=== PATIENT | male | born 1970 | race African-American/Black ===

== ENCOUNTER 2020-11-07 12:53 | Inpatient (IN) | payer MEDICAID, MEDICARE ==
[~2020-11-07] VITALS: Ht 165.1 cm; Wt 92.3 kg
[2020-11-07] MEDS ORDERED: FLUO-191 PO (13:02)
[2020-11-07] MEDS ORDERED: QUET200T PO (13:02)
[2020-11-07] MEDS ORDERED: DIVA-112 PO (13:02)
[2020-11-07 15:00] LABS: BASOPHILS % (AUTO) 0.7 % (0.0-2.0); EOSINOPHILS % (AUTO) 2.3 % (1.0-6.0); HEMATOCRIT 43.8 % (41-53); HEMOGLOBIN 14.3 g/dL (13.5-17.5); LYMPHOCYTES # (AUTO) 3.2 K/uL (1.0-4.8); MEAN CORPUSCULAR HEMOGLOBIN 27.2 pg (26.0-34.0); MEAN CORPUSCULAR HGB CONC 32.6 G/dL (31.0-37.0); MEAN CORPUSCULAR VOLUME 84 fL (80-100); MONOCYTES # (AUTO) 0.7 K/uL (0.1-1.0); MONOCYTES % (AUTO) 8.2 % (2.0-9.0); NEUTROPHILS # (AUTO) 4.4 K/uL (1.8-7.7); NEUTROPHILS % (AUTO) 51.8 % (40.0-70.0); PLATELET COUNT (AUTO) 322 K/uL (150-450); RED BLOOD CELL COUNT(AUTO) 5.25 MIL/uL (4.50-5.90); RED CELL DISTRIBUTION WIDTH 15.1 % (11.5-14.5)
[2020-11-07 15:12] LABS: ANION GAP 10 mmol/L (8-16); CALCIUM, TOTAL 9.1 mg/dL (8.8-10.5); CARBON DIOXIDE 28 mmol/L (22-29); CHLORIDE 106 mmol/L (98-107); CREATININE 1.12 mg/dL (0.60-1.30); GLOMERULAR FILTR. RATE CALC > 60 mL/min (>60); GLUCOSE,RANDOM 136 mg/dL (70-110); POTASSIUM 3.8 mmol/L (3.5-5.1); SODIUM SERUM 144 mmol/L (136-145); UREA NITROGEN, BLOOD 13 mg/dL (7-18)
[2020-11-07 15:19] LABS: ALANINE AMINOTRANSFERASE 39 U/L (12-78); ALBUMIN 3.9 g/dL (3.4-5.0); ALKALINE PHOSPHATASE 83 U/L (46-116); ASPARTATE AMINOTRANSFERASE 21 U/L (15-37); BILIRUBIN,TOTAL 0.3 mg/dL (0.1-1.0); TOTAL PROTEIN, SERUM 7.9 g/dL (6.4-8.2); VALPROIC ACID 4 mcg/mL (50-100)
[2020-11-07 17:43] LABS: AMPHET/METH SCREEN,URINE NEGATIVE (NEGATIVE); BARBITURATE SCREEN, URINE NEGATIVE (NEGATIVE); BENZODIAZEPINES SCREEN,URINE NEGATIVE (NEGATIVE); CANNABINOID SCREEN,URINE NEGATIVE (NEGATIVE); COCAINE SCREEN,URINE POSITIVE (NEGATIVE); METHADONE SCREEN, URINE NEGATIVE (NEGATIVE); OPIATE SCREEN,URINE NEGATIVE (NEGATIVE)
[2020-11-07 17:45] LABS: PHENCYCLIDINE SCREEN,URINE NEGATIVE (NEGATIVE)
[2020-11-07 19:43] LABS: COVID AG,FIA SOURCE NASOPHARYNGEAL
[2020-11-07] MEDS ORDERED: OLANZapine 5 MG RAPDIS TABLET PO PRN (19:45)
[2020-11-07] MEDS ORDERED: ZOLPIDEM TARTRATE 10 MG TABLET PO PRN (19:45)
[2020-11-07] MEDS ORDERED: LORazepam 2 MG TABLET PO PRN (19:45)
[2020-11-07] MEDS ORDERED: ACETAMINOPHEN 325 MG TABLET PO PRN (20:15)
[2020-11-07] MEDS ORDERED: PROMETHAZINE HCL 25 MG TABLET PO PRN (20:15)
[2020-11-07] MEDS ORDERED: MAG HYDROX/AL HYDROX/SIMETH ES 30 ML SUSPENSION UDCUP PO PRN (20:15)
[2020-11-07] MEDS ORDERED: LOPERAMIDE HCL 2 MG CAPSULE PO PRN (20:15)
[2020-11-07] MEDS ORDERED: HydrOXYzine PAMOATE 50 MG CAPSULE PO PRN (20:15)
[2020-11-07] MEDS ORDERED: TUBERCULIN, PURIFIED PROTEIN DERIVATIVE 5 TU/0.1 ML SYRINGE ID ONE (20:15)
[2020-11-07] MEDS ORDERED: MAGNESIUM HYDROXIDE SUSPENSION 30 ML UDCUP PO PRN (20:15)
[2020-11-07] MEDS ORDERED: GuaiFENesin/D-METHORPHAN [SUGAR-FREE] 200-20MG/10 ML SYRUP UDCUP PO PRN (20:15)
[2020-11-07 21:00] VITALS: BP 100/65
[2020-11-07] MEDS ORDERED: OLANZapine 5 MG RAPDIS TABLET PO SCH (21:00)
[2020-11-08] VITALS (7 sets, daily range): BP systolic 101–134; BP diastolic 66–78
[2020-11-08 07:00] LABS: HEMOGLOBIN A1C 6.7 % (3.8-5.6)
[2020-11-08 07:39] LABS: CHOL/HDL RATIO 3.1 (4.2-7.3); FREE T4 (FREE THYROXINE) 0.93 ng/dL (0.76-1.46); THYROID STIMULATING HORMONE 1.13 uIU/mL (0.36-3.74)
[2020-11-08] MEDS: THIAMINE 100 MG TABLET PO SCH ×3 (08:41→16:34)
[2020-11-08] MEDS: OMEGA-3/DHA/EPA/FISH OIL 1,000 MG CAPSULE PO SCH (08:42)
[2020-11-08] MEDS: FOLIC ACID 1 MG TABLET PO SCH (08:42)
[2020-11-08] MEDS: FLUoxetine HCL 20 MG CAPSULE PO SCH (08:42)
[2020-11-08] MEDS: NALTREXONE HCL 50 MG TABLET PO SCH (08:42)
[2020-11-08] MEDS: MULTIVITAMINS WITH MINERALS, THERAPEUTIC TABLET PO SCH (08:42)
[2020-11-08] MEDS: NICOTINE 14 MG/24 HOUR PATCH TD SCH (09:00)
[2020-11-08] MEDS ORDERED: LORazepam 2 MG TABLET PO PRN (19:00)
[2020-11-08] MEDS ORDERED: CYANOCOBALAMIN 1,000 MCG/ML VIAL IM ONE (19:00)
[2020-11-08] MEDS ORDERED: GLUCAGON,HUMAN RECOMBINANT 1 MG VIAL IM PRN (19:00)
[2020-11-08] MEDS ORDERED: QUEtiapine FUMARATE 100 MG TABLET PO PRN (19:00)
[2020-11-08] MEDS ORDERED: INSULIN LISPRO 100 UNITS/ML SQ PRN (19:00)
[2020-11-08] MEDS ORDERED: DEXTROSE 50%-WATER 25 GM/50 ML SYRINGE IVP PRN (19:15)
[2020-11-08] MEDS: MELATONIN 5 MG TABLET PO SCH ×2 (20:21→22:12)
[2020-11-08] MEDS: DIVALPROEX SODIUM 500 MG ER TABLET PO SCH ×2 (20:25→22:12)
[2020-11-08] MEDS ORDERED: QUEtiapine FUMARATE 200 MG TABLET PO SCH (21:00)
[2020-11-08] MEDS: INSULIN LISPRO 100 UNITS/ML SQ PRN (22:31)
[2020-11-08 22:37] LABS: GLUCOMETER DEV NAME(LOC) 3E.I 2; GLUCOSE,POINT OF CARE 168 MG/DL (70-110)
[2020-11-09 03:00] VITALS: BP 103/59
[2020-11-09] MEDS: INSULIN LISPRO 100 UNITS/ML SQ PRN (06:58)
[2020-11-09] MEDS ORDERED: LORazepam 2 MG TABLET PO PRN (07:00)
[2020-11-09 07:02] VITALS: BP 107/58
[2020-11-09 08:17] VITALS: BP 103/63
[2020-11-09] MEDS: FOLIC ACID 1 MG TABLET PO SCH (08:41)
[2020-11-09] MEDS: OMEGA-3/DHA/EPA/FISH OIL 1,000 MG CAPSULE PO SCH (08:41)
[2020-11-09] MEDS: NALTREXONE HCL 50 MG TABLET PO SCH (08:41)
[2020-11-09] MEDS: MULTIVITAMINS WITH MINERALS, THERAPEUTIC TABLET PO SCH (08:41)
[2020-11-09] MEDS: FLUoxetine HCL 20 MG CAPSULE PO SCH (08:41)
[2020-11-09] MEDS: THIAMINE 100 MG TABLET PO SCH ×2 (08:41→17:02)
[2020-11-09] MEDS: LORazepam 2 MG TABLET PO SCH ×4 (08:41→20:28)
[2020-11-09] MEDS: NICOTINE 14 MG/24 HOUR PATCH TD SCH (08:42)
[2020-11-09] MEDS ORDERED: THIAMINE 100 MG TABLET PO SCH (09:00)
[2020-11-09] MEDS ORDERED: FOLIC ACID 1 MG TABLET PO SCH (09:00)
[2020-11-09 11:32] LABS: GLUCOMETER DEV NAME(LOC) 3E.I 2; GLUCOSE,POINT OF CARE 95 MG/DL (70-110)
[2020-11-09 16:00] VITALS: BP 127/70
[2020-11-09 17:48] LABS: GLUCOMETER DEV NAME(LOC) 3E.I 2; GLUCOSE,POINT OF CARE 103 MG/DL (70-110)
[2020-11-09 19:25] VITALS: BP 127/70
[2020-11-09] MEDS: DIVALPROEX SODIUM 500 MG ER TABLET PO SCH (20:28)
[2020-11-09] MEDS: MELATONIN 5 MG TABLET PO SCH (20:28)
[2020-11-09 20:34] LABS: GLUCOMETER DEV NAME(LOC) 3E.I 2; GLUCOSE,POINT OF CARE 169 MG/DL (70-110)
[2020-11-09] MEDS ORDERED: QUEtiapine FUMARATE 300 MG TABLET PO SCH (21:00)
[2020-11-10 00:30] VITALS: BP 116/75
[2020-11-10 05:37] LABS: GLUCOMETER DEV NAME(LOC) 3E.I 2; GLUCOSE,POINT OF CARE 176 MG/DL (70-110)
[2020-11-10] MEDS: INSULIN LISPRO 100 UNITS/ML SQ PRN ×3 (06:35→21:42)
[2020-11-10] MEDS: FOLIC ACID 1 MG TABLET PO SCH (08:07)
[2020-11-10] MEDS: FLUoxetine HCL 20 MG CAPSULE PO SCH (08:07)
[2020-11-10] MEDS: THIAMINE 100 MG TABLET PO SCH ×2 (08:07→16:37)
[2020-11-10] MEDS: MULTIVITAMINS WITH MINERALS, THERAPEUTIC TABLET PO SCH (08:07)
[2020-11-10] MEDS: LORazepam 2 MG TABLET PO SCH ×4 (08:07→20:04)
[2020-11-10] MEDS: NALTREXONE HCL 50 MG TABLET PO SCH (08:08)
[2020-11-10] MEDS: OMEGA-3/DHA/EPA/FISH OIL 1,000 MG CAPSULE PO SCH (08:08)
[2020-11-10] MEDS: NICOTINE 14 MG/24 HOUR PATCH TD SCH (08:08)
[2020-11-10 09:20] VITALS: BP 119/82
[2020-11-10 11:24] LABS: GLUCOMETER DEV NAME(LOC) 3E.I 2; GLUCOSE,POINT OF CARE 143 MG/DL (70-110)
[2020-11-10 13:33] VITALS: BP 155/81
[2020-11-10 16:03] VITALS: BP 131/82
[2020-11-10 17:09] LABS: GLUCOMETER DEV NAME(LOC) 3E.I 2; GLUCOSE,POINT OF CARE 117 MG/DL (70-110)
[2020-11-10] MEDS: DIVALPROEX SODIUM 500 MG ER TABLET PO SCH (20:03)
[2020-11-10] MEDS: MELATONIN 5 MG TABLET PO SCH (20:05)
[2020-11-10 21:00] LABS: GLUCOMETER DEV NAME(LOC) 3E.I 2; GLUCOSE,POINT OF CARE 157 MG/DL (70-110)
[2020-11-10] MEDS ORDERED: QUEtiapine FUMARATE 200 MG TABLET PO SCH (21:00)
[2020-11-11 00:34] VITALS: BP 101/69
[2020-11-11 00:35] VITALS: BP 101/69
[2020-11-11 01:04] LABS: GLUCOMETER DEV NAME(LOC) 3E.I 2; GLUCOSE,POINT OF CARE 139 MG/DL (70-110)
[2020-11-11 05:32] LABS: GLUCOMETER DEV NAME(LOC) 3E.I 2; GLUCOSE,POINT OF CARE 142 MG/DL (70-110)
[2020-11-11] MEDS: INSULIN LISPRO 100 UNITS/ML SQ PRN (06:56)
[2020-11-11] MEDS ORDERED: LORazepam 1 MG TABLET PO PRN (07:00)
[2020-11-11] MEDS: OMEGA-3/DHA/EPA/FISH OIL 1,000 MG CAPSULE PO SCH (08:30)
[2020-11-11] MEDS: LORazepam 1 MG TABLET PO SCH ×4 (08:30→20:29)
[2020-11-11] MEDS: FOLIC ACID 1 MG TABLET PO SCH (08:30)
[2020-11-11] MEDS: THIAMINE 100 MG TABLET PO SCH ×2 (08:31→16:12)
[2020-11-11] MEDS: FLUoxetine HCL 20 MG CAPSULE PO SCH (08:31)
[2020-11-11] MEDS: NALTREXONE HCL 50 MG TABLET PO SCH (08:31)
[2020-11-11] MEDS: MULTIVITAMINS WITH MINERALS, THERAPEUTIC TABLET PO SCH (08:31)
[2020-11-11 08:39] VITALS: BP 113/72
[2020-11-11] MEDS: NICOTINE 14 MG/24 HOUR PATCH TD SCH (08:59)
[2020-11-11 11:26] LABS: GLUCOMETER DEV NAME(LOC) 3E.I 2; GLUCOSE,POINT OF CARE 84 MG/DL (70-110)
[2020-11-11 12:48] VITALS: BP 123/74
[2020-11-11 16:00] VITALS: BP 124/85
[2020-11-11 16:23] VITALS: BP 124/85
[2020-11-11 16:31] LABS: GLUCOMETER DEV NAME(LOC) 3E.I 2; GLUCOSE,POINT OF CARE 126 MG/DL (70-110)
[2020-11-11] MEDS: QUEtiapine FUMARATE 200 MG TABLET PO SCH (20:29)
[2020-11-11] MEDS: DIVALPROEX SODIUM 500 MG ER TABLET PO SCH (20:29)
[2020-11-11] MEDS: MELATONIN 5 MG TABLET PO SCH (20:29)
[2020-11-11 21:11] LABS: GLUCOMETER DEV NAME(LOC) 3E.I 2; GLUCOSE,POINT OF CARE 133 MG/DL (70-110)
[2020-11-12 05:41] LABS: GLUCOMETER DEV NAME(LOC) 3E.I 2; GLUCOSE,POINT OF CARE 87 MG/DL (70-110)
[2020-11-12] MEDS ORDERED: LORazepam 1 MG TABLET PO PRN (07:00)
[2020-11-12 08:15] VITALS: BP 103/53
[2020-11-12] MEDS: NICOTINE 14 MG/24 HOUR PATCH TD SCH (09:00)
[2020-11-12] MEDS: FOLIC ACID 1 MG TABLET PO SCH (09:05)
[2020-11-12] MEDS: MULTIVITAMINS WITH MINERALS, THERAPEUTIC TABLET PO SCH (09:06)
[2020-11-12] MEDS: FLUoxetine HCL 20 MG CAPSULE PO SCH (09:06)
[2020-11-12] MEDS: NALTREXONE HCL 50 MG TABLET PO SCH (09:06)
[2020-11-12] MEDS: OMEGA-3/DHA/EPA/FISH OIL 1,000 MG CAPSULE PO SCH (09:06)
[2020-11-12] MEDS: THIAMINE 100 MG TABLET PO SCH ×2 (09:06→16:35)
[2020-11-12] MEDS: INSULIN LISPRO 100 UNITS/ML SQ PRN ×2 (11:16→21:55)
[2020-11-12 11:23] LABS: GLUCOMETER DEV NAME(LOC) 3E.I 2; GLUCOSE,POINT OF CARE 166 MG/DL (70-110)
[2020-11-12 16:00] VITALS: BP 100/59
[2020-11-12 16:13] VITALS: BP 100/59
[2020-11-12 17:08] LABS: GLUCOMETER DEV NAME(LOC) 3E.I 2; GLUCOSE,POINT OF CARE 126 MG/DL (70-110)
[2020-11-12] MEDS: QUEtiapine FUMARATE 200 MG TABLET PO SCH (20:09)
[2020-11-12] MEDS: MELATONIN 5 MG TABLET PO SCH (20:09)
[2020-11-12] MEDS: DIVALPROEX SODIUM 500 MG ER TABLET PO SCH (20:09)
[2020-11-12 21:33] LABS: GLUCOMETER DEV NAME(LOC) 3E.I 2; GLUCOSE,POINT OF CARE 162 MG/DL (70-110)
[2020-11-13 05:31] LABS: GLUCOMETER DEV NAME(LOC) 3E.I 2; GLUCOSE,POINT OF CARE 117 MG/DL (70-110)
[2020-11-13 05:54] VITALS: BP 106/67
[2020-11-13] MEDS: OMEGA-3/DHA/EPA/FISH OIL 1,000 MG CAPSULE PO SCH (08:23)
[2020-11-13] MEDS: FOLIC ACID 1 MG TABLET PO SCH (08:23)
[2020-11-13] MEDS: NALTREXONE HCL 50 MG TABLET PO SCH (08:23)
[2020-11-13] MEDS: MULTIVITAMINS WITH MINERALS, THERAPEUTIC TABLET PO SCH (08:23)
[2020-11-13] MEDS: FLUoxetine HCL 20 MG CAPSULE PO SCH (08:23)
[2020-11-13] MEDS: THIAMINE 100 MG TABLET PO SCH ×2 (08:23→16:27)
[2020-11-13 08:57] VITALS: BP 114/70
[2020-11-13] MEDS: NICOTINE 14 MG/24 HOUR PATCH TD SCH (09:00)
[2020-11-13 12:06] LABS: GLUCOMETER DEV NAME(LOC) 3E.I 2; GLUCOSE,POINT OF CARE 96 MG/DL (70-110)
[2020-11-13 14:50] LABS: COVID AG,FIA SOURCE NASOPHARYNGEAL
[2020-11-13 16:34] VITALS: BP 113/71
[2020-11-13 17:21] LABS: GLUCOMETER DEV NAME(LOC) 3E.I 2; GLUCOSE,POINT OF CARE 155 MG/DL (70-110)
[2020-11-13] MEDS: INSULIN LISPRO 100 UNITS/ML SQ PRN ×2 (17:45→21:40)
[2020-11-13 20:17] VITALS: BP 113/71
[2020-11-13] MEDS: MELATONIN 5 MG TABLET PO SCH (20:51)
[2020-11-13] MEDS: QUEtiapine FUMARATE 200 MG TABLET PO SCH (20:51)
[2020-11-13] MEDS: DIVALPROEX SODIUM 500 MG ER TABLET PO SCH (20:51)
[2020-11-13 21:48] LABS: GLUCOMETER DEV NAME(LOC) 3E.I 2; GLUCOSE,POINT OF CARE 157 MG/DL (70-110)
[2020-11-14 00:41] VITALS: BP 114/84
[2020-11-14 05:34] LABS: GLUCOMETER DEV NAME(LOC) 3E.I 2; GLUCOSE,POINT OF CARE 106 MG/DL (70-110)
[2020-11-14] MEDS: MULTIVITAMINS WITH MINERALS, THERAPEUTIC TABLET PO SCH (08:15)
[2020-11-14] MEDS: FLUoxetine HCL 20 MG CAPSULE PO SCH (08:15)
[2020-11-14] MEDS: OMEGA-3/DHA/EPA/FISH OIL 1,000 MG CAPSULE PO SCH (08:15)
[2020-11-14] MEDS: NALTREXONE HCL 50 MG TABLET PO SCH (08:15)
[2020-11-14] MEDS: FOLIC ACID 1 MG TABLET PO SCH (08:15)
[2020-11-14] MEDS: THIAMINE 100 MG TABLET PO SCH ×2 (08:15→16:55)
[2020-11-14] MEDS: NICOTINE 14 MG/24 HOUR PATCH TD SCH (08:16)
[2020-11-14 08:17] VITALS: BP 114/72
[2020-11-14] MEDS: INSULIN LISPRO 100 UNITS/ML SQ PRN ×3 (11:13→20:54)
[2020-11-14 11:20] LABS: GLUCOMETER DEV NAME(LOC) 3E.I 2; GLUCOSE,POINT OF CARE 100 MG/DL (70-110)
[2020-11-14 16:25] VITALS: BP 124/80
[2020-11-14 16:59] LABS: GLUCOMETER DEV NAME(LOC) 3E.I 2; GLUCOSE,POINT OF CARE 145 MG/DL (70-110)
[2020-11-14] MEDS: MELATONIN 5 MG TABLET PO SCH (20:51)
[2020-11-14] MEDS: DIVALPROEX SODIUM 500 MG ER TABLET PO SCH (20:51)
[2020-11-14] MEDS ORDERED: QUEtiapine FUMARATE 200 MG TABLET PO SCH (21:00)
[2020-11-14 21:38] LABS: GLUCOMETER DEV NAME(LOC) 3E.I 2; GLUCOSE,POINT OF CARE 148 MG/DL (70-110)
[2020-11-15 05:30] LABS: GLUCOMETER DEV NAME(LOC) 3E.I 2; GLUCOSE,POINT OF CARE 105 MG/DL (70-110)
[2020-11-15 08:30] VITALS: BP 117/79
[2020-11-15] MEDS: OMEGA-3/DHA/EPA/FISH OIL 1,000 MG CAPSULE PO SCH (08:30)
[2020-11-15] MEDS: MULTIVITAMINS WITH MINERALS, THERAPEUTIC TABLET PO SCH (08:30)
[2020-11-15] MEDS: NALTREXONE HCL 50 MG TABLET PO SCH (08:30)
[2020-11-15] MEDS: FOLIC ACID 1 MG TABLET PO SCH (08:30)
[2020-11-15] MEDS: FLUoxetine HCL 20 MG CAPSULE PO SCH (08:31)
[2020-11-15] MEDS: THIAMINE 100 MG TABLET PO SCH ×2 (08:31→17:19)
[2020-11-15] MEDS: NICOTINE 14 MG/24 HOUR PATCH TD SCH (08:31)
[2020-11-15] MEDS: INSULIN LISPRO 100 UNITS/ML SQ PRN ×2 (11:52→22:16)
[2020-11-15 11:53] LABS: GLUCOMETER DEV NAME(LOC) 3E.I 2; GLUCOSE,POINT OF CARE 137 MG/DL (70-110)
[2020-11-15 16:00] VITALS: BP 98/73
[2020-11-15 16:42] LABS: GLUCOMETER DEV NAME(LOC) 3E.I 2; GLUCOSE,POINT OF CARE 185 MG/DL (70-110)
[2020-11-15] MEDS: MELATONIN 5 MG TABLET PO SCH (20:39)
[2020-11-15] MEDS: DIVALPROEX SODIUM 500 MG ER TABLET PO SCH (20:39)
[2020-11-15] MEDS: QUEtiapine FUMARATE 200 MG TABLET PO SCH (21:00)
[2020-11-15 21:03] LABS: GLUCOMETER DEV NAME(LOC) 3EX.; GLUCOSE,POINT OF CARE 227 MG/DL (70-110)
[2020-11-16 05:45] LABS: GLUCOMETER DEV NAME(LOC) 3EX.; GLUCOSE,POINT OF CARE 92 MG/DL (70-110)
[2020-11-16] MEDS: INSULIN LISPRO 100 UNITS/ML SQ PRN ×2 (07:04→17:06)
[2020-11-16] MEDS: MULTIVITAMINS WITH MINERALS, THERAPEUTIC TABLET PO SCH (08:03)
[2020-11-16] MEDS: NALTREXONE HCL 50 MG TABLET PO SCH (08:03)
[2020-11-16] MEDS: OMEGA-3/DHA/EPA/FISH OIL 1,000 MG CAPSULE PO SCH (08:03)
[2020-11-16] MEDS: FLUoxetine HCL 20 MG CAPSULE PO SCH (08:03)
[2020-11-16] MEDS: THIAMINE 100 MG TABLET PO SCH ×2 (08:03→17:05)
[2020-11-16] MEDS: NICOTINE 14 MG/24 HOUR PATCH TD SCH (08:03)
[2020-11-16] MEDS: FOLIC ACID 1 MG TABLET PO SCH (08:03)
[2020-11-16 08:30] VITALS: BP 138/84
[2020-11-16 11:14] LABS: GLUCOMETER DEV NAME(LOC) 3E.I 2; GLUCOSE,POINT OF CARE 102 MG/DL (70-110)
[2020-11-16 16:25] VITALS: BP 90/57
[2020-11-16 17:16] LABS: GLUCOMETER DEV NAME(LOC) 3E.I 2; GLUCOSE,POINT OF CARE 184 MG/DL (70-110)
[2020-11-16] MEDS: QUEtiapine FUMARATE 200 MG TABLET PO SCH (21:00)
[2020-11-16] MEDS: DIVALPROEX SODIUM 500 MG ER TABLET PO SCH (21:08)
[2020-11-16] MEDS: MELATONIN 5 MG TABLET PO SCH (21:08)
[2020-11-17 05:26] LABS: GLUCOMETER DEV NAME(LOC) 3E.I 2; GLUCOSE,POINT OF CARE 93 MG/DL (70-110)
[2020-11-17] MEDS: MetFORMIN HCL 500 MG TABLET PO SCH ×2 (06:55→16:45)
[2020-11-17] MEDS: INSULIN LISPRO 100 UNITS/ML SQ PRN (06:56)
[2020-11-17 08:30] VITALS: BP 107/70
[2020-11-17] MEDS: MULTIVITAMINS WITH MINERALS, THERAPEUTIC TABLET PO SCH (09:00)
[2020-11-17] MEDS: FOLIC ACID 1 MG TABLET PO SCH (09:00)
[2020-11-17] MEDS: NICOTINE 14 MG/24 HOUR PATCH TD SCH (09:00)
[2020-11-17] MEDS: OMEGA-3/DHA/EPA/FISH OIL 1,000 MG CAPSULE PO SCH (09:00)
[2020-11-17] MEDS: THIAMINE 100 MG TABLET PO SCH (09:00)
[2020-11-17] MEDS: FLUoxetine HCL 20 MG CAPSULE PO SCH (09:00)
[2020-11-17] MEDS: NALTREXONE HCL 50 MG TABLET PO SCH (09:00)
[2020-11-17 17:04] LABS: GLUCOMETER DEV NAME(LOC) 3E.I 2; GLUCOSE,POINT OF CARE 128 MG/DL (70-110)
[2020-11-17 17:18] VITALS: BP 112/68
[2020-11-17] MEDS: DIVALPROEX SODIUM 500 MG ER TABLET PO SCH (20:51)
[2020-11-17] MEDS: MELATONIN 5 MG TABLET PO SCH (20:51)
[2020-11-17] MEDS: QUEtiapine FUMARATE 200 MG TABLET PO SCH (20:55)
[2020-11-18 05:55] LABS: GLUCOMETER DEV NAME(LOC) 3E.I 2; GLUCOSE,POINT OF CARE 87 MG/DL (70-110)
[2020-11-18] MEDS: INSULIN LISPRO 100 UNITS/ML SQ PRN ×2 (06:49→07:01)
[2020-11-18] MEDS: MetFORMIN HCL 500 MG TABLET PO SCH ×2 (07:00→16:36)
[2020-11-18] MEDS: FLUoxetine HCL 20 MG CAPSULE PO SCH (09:34)
[2020-11-18] MEDS: OMEGA-3/DHA/EPA/FISH OIL 1,000 MG CAPSULE PO SCH (09:34)
[2020-11-18] MEDS: MULTIVITAMINS WITH MINERALS, THERAPEUTIC TABLET PO SCH (09:35)
[2020-11-18] MEDS: NALTREXONE HCL 50 MG TABLET PO SCH (09:35)
[2020-11-18] MEDS: NICOTINE 14 MG/24 HOUR PATCH TD SCH (09:37)
[2020-11-18 16:00] VITALS: BP 105/64
[2020-11-18] MEDS: MELATONIN 5 MG TABLET PO SCH (20:16)
[2020-11-18] MEDS: DIVALPROEX SODIUM 500 MG ER TABLET PO SCH (20:16)
[2020-11-18] MEDS: QUEtiapine FUMARATE 200 MG TABLET PO SCH ×3 (20:17→21:00)
[2020-11-18 20:45] LABS: GLUCOMETER DEV NAME(LOC) 3E.I 2; GLUCOSE,POINT OF CARE 89 MG/DL (70-110)
[2020-11-19 05:26] LABS: GLUCOMETER DEV NAME(LOC) 3E.I 2; GLUCOSE,POINT OF CARE 96 MG/DL (70-110)
[2020-11-19] MEDS: MetFORMIN HCL 500 MG TABLET PO SCH ×2 (07:01→16:18)
[2020-11-19 08:42] VITALS: BP 114/72
[2020-11-19] MEDS: FLUoxetine HCL 20 MG CAPSULE PO SCH (08:43)
[2020-11-19] MEDS: MULTIVITAMINS WITH MINERALS, THERAPEUTIC TABLET PO SCH (08:43)
[2020-11-19] MEDS: OMEGA-3/DHA/EPA/FISH OIL 1,000 MG CAPSULE PO SCH (08:44)
[2020-11-19] MEDS: NALTREXONE HCL 50 MG TABLET PO SCH (08:44)
[2020-11-19] MEDS: NICOTINE 14 MG/24 HOUR PATCH TD SCH (08:45)
[2020-11-19 16:05] VITALS: BP 110/72
[2020-11-19 16:29] LABS: GLUCOMETER DEV NAME(LOC) 3E.I 2; GLUCOSE,POINT OF CARE 87 MG/DL (70-110)
[2020-11-19] MEDS: QUEtiapine FUMARATE 200 MG TABLET PO SCH (20:28)
[2020-11-19] MEDS: MELATONIN 5 MG TABLET PO SCH (20:29)
[2020-11-19] MEDS: DIVALPROEX SODIUM 500 MG ER TABLET PO SCH (21:21)
[2020-11-20 05:44] LABS: GLUCOMETER DEV NAME(LOC) 3E.I 2; GLUCOSE,POINT OF CARE 92 MG/DL (70-110)
[2020-11-20] MEDS: MetFORMIN HCL 500 MG TABLET PO SCH ×2 (06:33→16:04)
[2020-11-20 08:37] LABS: COVID AG,FIA SOURCE NASOPHARYNGEAL
[2020-11-20 08:57] VITALS: BP 102/52
[2020-11-20 09:00] VITALS: BP 106/52
[2020-11-20] MEDS: MULTIVITAMINS WITH MINERALS, THERAPEUTIC TABLET PO SCH (09:13)
[2020-11-20] MEDS: OMEGA-3/DHA/EPA/FISH OIL 1,000 MG CAPSULE PO SCH (09:13)
[2020-11-20] MEDS: FLUoxetine HCL 20 MG CAPSULE PO SCH (09:13)
[2020-11-20] MEDS: NALTREXONE HCL 50 MG TABLET PO SCH (09:13)
[2020-11-20] MEDS: NICOTINE 14 MG/24 HOUR PATCH TD SCH (09:14)
[2020-11-20 16:17] LABS: GLUCOMETER DEV NAME(LOC) 3E.I 2; GLUCOSE,POINT OF CARE 157 MG/DL (70-110)
[2020-11-20 16:29] VITALS: BP 110/64
[2020-11-20 17:31] LABS: GLUCOMETER DEV NAME(LOC) 3E.I 2; GLUCOSE,POINT OF CARE 99 MG/DL (70-110)
[2020-11-20] MEDS: DIVALPROEX SODIUM 500 MG ER TABLET PO SCH (20:14)
[2020-11-20] MEDS: MELATONIN 5 MG TABLET PO SCH (20:14)
[2020-11-20] MEDS: QUEtiapine FUMARATE 200 MG TABLET PO SCH (20:17)
[2020-11-21 05:37] LABS: GLUCOMETER DEV NAME(LOC) 3E.I 2; GLUCOSE,POINT OF CARE 95 MG/DL (70-110)
[2020-11-21] MEDS: MetFORMIN HCL 500 MG TABLET PO SCH ×2 (06:33→16:47)
[2020-11-21] MEDS: OMEGA-3/DHA/EPA/FISH OIL 1,000 MG CAPSULE PO SCH (08:35)
[2020-11-21] MEDS: FLUoxetine HCL 20 MG CAPSULE PO SCH (08:35)
[2020-11-21] MEDS: MULTIVITAMINS WITH MINERALS, THERAPEUTIC TABLET PO SCH (08:35)
[2020-11-21] MEDS: NALTREXONE HCL 50 MG TABLET PO SCH (08:35)
[2020-11-21] MEDS: NICOTINE 14 MG/24 HOUR PATCH TD SCH (08:36)
[2020-11-21 12:19] VITALS: BP 113/69
[2020-11-21 16:19] VITALS: BP 110/72
[2020-11-21 17:25] LABS: GLUCOMETER DEV NAME(LOC) 3E.I 2; GLUCOSE,POINT OF CARE 82 MG/DL (70-110)
[2020-11-21] MEDS: MELATONIN 5 MG TABLET PO SCH (20:56)
[2020-11-21] MEDS: DIVALPROEX SODIUM 500 MG ER TABLET PO SCH (20:56)
[2020-11-21] MEDS ORDERED: QUEtiapine FUMARATE 200 MG TABLET PO SCH (21:00)
[2020-11-22 05:42] LABS: GLUCOMETER DEV NAME(LOC) 3E.I 2; GLUCOSE,POINT OF CARE 92 MG/DL (70-110)
[2020-11-22] MEDS: MetFORMIN HCL 500 MG TABLET PO SCH (07:00)
[2020-11-22] MEDS: INSULIN LISPRO 100 UNITS/ML SQ PRN (07:16)
[2020-11-22 08:01] VITALS: BP 105/45
[2020-11-22] MEDS: MULTIVITAMINS WITH MINERALS, THERAPEUTIC TABLET PO SCH (08:21)
[2020-11-22] MEDS: NALTREXONE HCL 50 MG TABLET PO SCH (08:21)
[2020-11-22] MEDS: OMEGA-3/DHA/EPA/FISH OIL 1,000 MG CAPSULE PO SCH (08:22)
[2020-11-22] MEDS: FLUoxetine HCL 20 MG CAPSULE PO SCH (08:22)
[2020-11-22] MEDS: NICOTINE 14 MG/24 HOUR PATCH TD SCH (08:32)
[2020-11-22] MEDS ORDERED: MELA5TAB3 PO (12:30)
[2020-11-22] MEDS ORDERED: DIVA-80 PO (12:30)
[2020-11-22] MEDS ORDERED: QUET200T29 PO (12:30)
[2020-11-22] MEDS ORDERED: OMEG-135 PO (12:30)
[2020-11-22] MEDS ORDERED: FLUO20CA36 PO (12:30)
[2020-11-22] MEDS ORDERED: NALT50TA PO (12:30)
[2020-11-22] MEDS ORDERED: METF-960 PO (13:04)
== END 2020-11-22 13:45 | disposition home or self-care (01) | DRG 750 ==
LOC: EMS 12:58 → 3EI 20:34
PROVIDERS: ADMIT Psychiatry & Neurology Psychiatry; ATTEND Psychiatry & Neurology Psychiatry
DX: F25.9 Schizoaffective disorder, unspecified (principal); E11.9 Type 2 diabetes mellitus without complications; F14.90 Cocaine use, unspecified, uncomplicated; Z59.0 Homelessness; F43.10 Post-traumatic stress disorder, unspecified; Z20.822 Contact with and (suspected) exposure to COVID-19; J45.909 Unspecified asthma, uncomplicated; Z88.8 Allergy status to other drugs, medicaments and biological substances; Z87.891 Personal history of nicotine dependence
CPT/HCPCS: 80053; 80061; 80164; 82962; 83036; 84439; 84443; 85025; 86592; 87426; 99285; A9575; G0480; J3420